=== PATIENT | male | born 1965 | race Hispanic/Latino ===

== ENCOUNTER 2019-07-07 04:10 | Emergency (ER) | payer OTHER ==
[2019-07-07 04:25] VITALS: BP 141/80
[2019-07-07] MEDS ORDERED: predniSONE 20 MG TAB PO ONE (04:44)
[2019-07-07] MEDS ORDERED: KETOROLAC 30 MG/1 ML INJ IM ONE (04:44)
[2019-07-07] MEDS ORDERED: oxyCODONE /ACETAMINOPHEN 5-325MG TAB PO ONE (04:45)
[2019-07-07] MEDS ORDERED: ONDANSETRON 4 MG ODT TAB PO ONE (04:46)
--- NOTE | 2019-07-07 04:58 | Emergency Department Report ---
ED Back Pain/Injury HPI - General Chief Complaint: Extremity Injury, Lower Stated Complaint: LOWER BACK/R LEG/HIP PAIN Source: patient Limitations: No Limitations - History of Present Illness Initial Comments: Patient is a 53-year-old white male with a history of chronic low back pain who presents to the ED with acute exacerbation of his chronic low back pain for the last 1 week, worse in the last 6 hours. Patient states that the pain radiates to the right leg persistently. 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 Patient denies fall, traumatic injury, dizziness, hematuria, testicular pain, urinary frequency and urgency, numbness and tingling or weakness of lower extremities bilaterally, chest pain, shortness of breath, saddle paresthesia, urinary or bowel incontinence. MD Complaint: back pain (lower) -: Sudden, week(s) (1), year(s) Similar Symptoms Previously: Yes (chronic low back pain) Place: home Radiation: right leg Severity: severe Severity scale (0 -10): 9 Quality: sharp, aching Consistency: constant Improves With: none Worsens With: movement, walking Context: while lifting, turning/twisting, bending Associated Symptoms: denies other symptoms, difficulty walking (due to pain). denies: confusion, chest pain, numbness, cough, difficulty urinating, diaphoresis, incontinence, constipation, headaches, abdominal pain, loss of appetite, nausea/vomiting, rash, seizure, shortness of breath, syncope Treatments Prior to Arrival: NSAIDS - Related Data Previous Rx's Medication Instructions Recorded Last Taken Type Naproxen 500 mg PO Q12H PRN #30 tablet 07/07/19 Unknown Rx methOCARBAMOL [Robaxin TAB] 750 mg PO Q8H PRN #30 tablet 07/07/19 Unknown Rx predniSONE [Deltasone] 50 mg PO QDAY #5 tab 07/07/19 Unknown Rx traMADoL [Ultram] 50 mg PO Q6HR PRN #12 tablet 07/07/19 Unknown Rx ED Review of Systems ROS: Stated complaint: LOWER BACK/R LEG/HIP PAIN Other details as noted in HPI Constitutional: denies: chills, fever Eyes: denies: eye pain, eye discharge, vision change ENT: denies: ear pain, throat pain Respiratory: denies: cough, shortness of breath, wheezing Cardiovascular: denies: chest pain, palpitations Endocrine: no symptoms reported Gastrointestinal: denies: abdominal pain, nausea, diarrhea Genitourinary: denies: urgency, dysuria Musculoskeletal: back pain (lower back pain), arthralgia, myalgia. denies: joint swelling Skin: denies: rash, lesions Neurological: denies: headache, weakness, paresthesias Psychiatric: denies: anxiety, depression Hematological/Lymphatic: denies: easy bleeding, easy bruising ED Past Medical Hx - Past Medical History Previous Medical History?: Yes Additional medical history: Chron's - Surgical History Past Surgical History?: Yes Additional Surgical History: Intestinal, rotator cuff, lasik - Social History Smoking Status: Former Smoker - Medications Home Medications: Home Medications Medication Instructions Recorded Confirmed Last Taken Type Naproxen 500 mg PO Q12H PRN #30 tablet 07/07/19 Unknown Rx methOCARBAMOL [Robaxin TAB] 750 mg PO Q8H PRN #30 tablet 07/07/19 Unknown Rx predniSONE [Deltasone] 50 mg PO QDAY #5 tab 07/07/19 Unknown Rx traMADoL [Ultram] 50 mg PO Q6HR PRN #12 tablet 07/07/19 Unknown Rx ED Physical Exam - General Limitations: No Limitations General appearance: alert, in no apparent distress - Head Head exam: Present: atraumatic, normocephalic, normal inspection - Eye Eye exam: Present: normal appearance, PERRL, EOMI Pupils: Present: normal accommodation - ENT ENT exam: Present: normal exam, normal orophraynx, mucous membranes moist, TM's normal bilaterally, normal external ear exam - Neck Neck exam: Present: normal inspection, full ROM. Absent: tenderness - Respiratory Respiratory exam: Present: normal lung sounds bilaterally. Absent: respiratory distress, wheezes, rales, rhonchi, chest wall tenderness, accessory muscle use, decreased breath sounds - Cardiovascular Cardiovascular Exam: Present: regular rate, normal rhythm, normal heart sounds. Absent: systolic murmur, diastolic murmur, rubs, gallop - GI/Abdominal GI/Abdominal exam: Present: soft, normal bowel sounds. Absent: tenderness, hyperactive bowel sounds, hypoactive bowel sounds - Extremities Exam Extremities exam: Present: normal inspection, full ROM, normal capillary refill - Back Exam Back exam: Present: normal inspection, full ROM, tenderness (palpable lumbosacral paraspinal musculoskeletal tenderness), muscle spasm, paraspinal tenderness - Neurological Exam Neurological exam: Present: alert, oriented X3, CN II-XII intact, normal gait, reflexes normal - Psychiatric Psychiatric exam: Present: normal affect, normal mood - Skin Skin exam: Present: warm, dry, intact, normal color. Absent: rash ED Course Vital Signs 07/07/19 04:16 Temperature 97.6 F Pulse Rate 94 H Respiratory 18 Rate Blood Pressure 141/80 O2 Sat by Pulse 95 Oximetry ED Medical Decision Making - Medical Decision Making This is a 53 year-old white male with a history of chronic low back pain with sciatica who presents to the ED with acute exacerbation of his chronic low back worse in the last 6 hours. In the ED, patient is alert and oriented 3 and is not in any distress. 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 Patient was treated for pain in the ED. On reevaluation, patient's pain is well-controlled with medications. Patient was discharged home on pain medications and muscle relaxants and was advised to follow-up with his primary care physician in 7-10 days for reevaluation or return to the ED immediately if symptoms get worse. - Differential Diagnosis chronic back pain; sciatica; muscle spasm; Muscle strain, Lumbar disc disea Critical care attestation.: If time is entered above; I have spent that time in minutes in the direct care of this critically ill patient, excluding procedure time. ED Disposition Clinical Impression: Acute exacerbation of chronic low back pain, Spasm of muscle of lower back, Lumbar disc disease with radiculopathy Chronic low back pain with right-sided sciatica Qualifiers: Back pain laterality: unspecified Qualified Code(s): M54.41 - Lumbago with sciatica, right side; G89.29 - Other chronic pain Disposition: - TO HOME OR SELFCARE Is pt being admited?: No Does the pt Need Aspirin: No Condition: Stable Instructions: Lumbar Radiculopathy (ED), Arthralgia (ED), Sciatica (ED), Muscle Spasm (ED), Chronic Back Pain (ED) Additional Instructions: Take medications with food, drink plenty of fluids and follow up with your primary care physician in 7-10 days for reevaluation. Return to the emergency Department immediately if symptoms get worse. Prescriptions: predniSONE [Deltasone] 50 mg PO QDAY #5 tab Naproxen 500 mg PO Q12H PRN #30 tablet PRN Reason: Pain , Severe (7-10) methOCARBAMOL [Robaxin TAB] 750 mg PO Q8H PRN #30 tablet PRN Reason: Muscle Spasm traMADoL [Ultram] 50 mg PO Q6HR PRN #12 tablet PRN Reason: Pain Referrals: MICHAEL TINOCO MD [Staff Physician] - 7-10 days Forms: Work/School Release Form(ED) Time of Disposition: 05:01 Print Language: [place]
== END 2019-07-07 05:30 | disposition home or self-care (01) ==
LOC: ED 04:10
DX: M54.16 Radiculopathy, lumbar region (principal); M62.830 Muscle spasm of back; M54.41 Lumbago with sciatica, right side; K50.90 Crohn's disease, unspecified, without complications; G89.29 Other chronic pain; Z87.891 Personal history of nicotine dependence; Z79.899 Other long term (current) drug therapy
CPT/HCPCS: 96372; 99283; J1885; J7512; Q0162